=== PATIENT | male | born 1950 | race Caucasian/White ===

== ENCOUNTER 2020-04-22 05:15 | Inpatient (IN) | payer OTHER ==
[~2020-04-22] VITALS: Ht 167.6 cm; Wt 73.9 kg
[~2020-04-22 05:15] MED LIST: ASPI81CH43 PO
[2020-04-22] MEDS ORDERED: ADENOSINE 6 MG/2 ML INJ IV ONE ×2 (05:30)
[2020-04-22] MEDS ORDERED: dilTIAZem 25 MG/5 ML VIAL IV ONE ×3 (05:44→06:00)
[2020-04-22] MEDS ORDERED: LORazepam 2MG/ML-1ML VIAL ONE (05:50)
[2020-04-22] MEDS ORDERED: METOPROLOL TARTRATE 50 MG TAB PO ONE (06:00)
[2020-04-22] MEDS ORDERED: LORazepam 2MG/ML-1ML VIAL IV ONE (06:00)
[2020-04-22 06:04] LABS: Basophils # (auto) 0.1 10 ^3/uL (0-0.2); Basophils % (auto) 0.4 % (0.0-2.0); Eosinophils # (auto) 0 10 ^3/uL (0-0.8); Eosinophils % (auto) 0.1 % (0.0-7.0); Hematocrit 40.3 % (41.0-53.0); Hemoglobin 13.5 g/dL (13.5-17.5); Lymphocytes # (auto) 3.6 10 ^3/uL (0.4-5.4); Lymphocytes % (auto) 24.4 % (10.0-50.0); Mean Corpuscular Hemoglobin 32.7 pg (28.0-32.0); Mean Corpuscular Hgb Conc. 33.6 g/dL (32.0-36.0); Mean Corpuscular Volume 97.3 fL (80.0-100.0); Monocytes # (auto) 1.2 10 ^3/uL (0-1.3); Monocytes % (auto) 8.3 % (0.0-12.0); Neutrophils # (auto) 9.9 10 ^3/uL (1.6-8.6); Neutrophils % (auto) 66.8 % (37.0-80.0); Platelet Count (auto) 409 10^3/uL (140-450); Red Blood Cells 4.15 10^6/uL (4.5-5.90); White Blood Cell 14.7 10^3/uL (4.4-10.8)
[2020-04-22] MEDS ORDERED: METOPROLOL TARTRATE 1MG/1ML-5ML VIAL IV ONE (06:15)
[2020-04-22 06:22] LABS: Albumin 4.1 g/dL (3.4-5.0); Calcium 10.6 mg/dL (8.5-10.1); Magnesium 2.4 mg/dL (1.6-2.6); Potassium 3.8 mmol/L (3.5-5.1)
[2020-04-22 06:26] LABS: INR 0.94 (0.9-1.15); Partial Thromboplastin Time 23.8 sec (23.64-32.05)
[2020-04-22 06:28] LABS: BUN/Creatinine Ratio 11.8; Bilirubin, Total 0.5 mg/dL (0.2-1.0); Total Protein 7.8 g/dL (6.4-8.2)
[2020-04-22] MEDS ORDERED: DOXYCYCLINE 100MG/250ML 250 ML IV ONE (08:00)
[2020-04-22] MEDS ORDERED: cefTRIAXone 1GM/50ML D5W 50 ML IV ONE (08:00)
[2020-04-22 09:36] LABS: Lactic Acid w/Reflex 2.4 mmol/L (0.4-2.0)
[2020-04-22] MEDS ORDERED: ATOR10TA52 PO (10:03)
[2020-04-22] MEDS ORDERED: DILT60TA27 PO (10:03)
[2020-04-22] MEDS ORDERED: MYCO500T PO ×2 (10:03→12:47)
[2020-04-22] MEDS ORDERED: PRED20TA2 PO (10:03)
[2020-04-22] MEDS ORDERED: LOSA-39 PO (10:03)
[2020-04-22] MEDS ORDERED: ALBU1AER4 IN ×2 (10:11→12:47)
[2020-04-22] MEDS ORDERED: HYDROcodone-ACET 5/325MG TAB PO PRN (10:15)
[2020-04-22] MEDS ORDERED: NITROGLYCERIN 0.4 MG SL TAB SL PRN (10:15)
[2020-04-22] MEDS ORDERED: MORPHINE SULF INJ 2 MG/ML SYRINGE 1ML IV PRN (10:15)
[2020-04-22] MEDS: LOSARTAN POTASSIUM 50 MG TAB PO SCH (10:30)
[2020-04-22] MEDS ORDERED: PRED-158 PO (12:47)
[2020-04-22] MEDS ORDERED: TRIA0.1O TOP (12:47)
[2020-04-22] MEDS ORDERED: DILT120T3 PO (12:47)
[2020-04-22] MEDS: Albuterol Sulfate (Proair Respiclick) 108 MCG IN SCH ×2 (14:00→22:00)
[2020-04-22] MEDS ORDERED: ATORVASTATIN 20 MG TAB PO SCH (22:00)
[2020-04-22] MEDS: MYCOPHENOLATE 500 MG TAB PO SCH (22:06)
[2020-04-23] MEDS: Albuterol Sulfate (Proair Respiclick) 108 MCG IN SCH (06:00)
[2020-04-23] MEDS ORDERED: cefTRIAXone 1GM/50ML D5W 50 ML IV SCH (09:00)
[2020-04-23] MEDS ORDERED: cefTRIAXone SOD 1,000 MG VL ONE (09:07)
[2020-04-23 09:22] LABS: Basophils # (auto) 0.1 10 ^3/uL (0-0.2); Basophils % (auto) 0.7 % (0.0-2.0); Eosinophils # (auto) 0.1 10 ^3/uL (0-0.8); Eosinophils % (auto) 0.5 % (0.0-7.0); Hemoglobin 12.7 g/dL (13.5-17.5); Lymphocytes # (auto) 2.1 10 ^3/uL (0.4-5.4); Lymphocytes % (auto) 16.6 % (10.0-50.0); Mean Corpuscular Hemoglobin 32.5 pg (28.0-32.0); Mean Corpuscular Hgb Conc. 33.4 g/dL (32.0-36.0); Mean Corpuscular Volume 97.1 fL (80.0-100.0); Monocytes # (auto) 0.9 10 ^3/uL (0-1.3); Monocytes % (auto) 7.3 % (0.0-12.0); Neutrophils # (auto) 9.5 10 ^3/uL (1.6-8.6); Neutrophils % (auto) 74.9 % (37.0-80.0); Nucleated Red Blood Cells % 0.4 %; Platelet Count (auto) 380 10^3/uL (140-450); Red Blood Cells 3.91 10^6/uL (4.5-5.90); Red Cell Distribution Width 13.8 % (11.8-14.3); White Blood Cell 12.7 10^3/uL (4.4-10.8)
[2020-04-23] MEDS: MYCOPHENOLATE 500 MG TAB PO SCH (09:31)
[2020-04-23] MEDS: LOSARTAN POTASSIUM 50 MG TAB PO SCH (09:31)
[2020-04-23 09:42] LABS: Albumin 3.6 g/dL (3.4-5.0); BUN/Creatinine Ratio 11.6; Calcium 9.1 mg/dL (8.5-10.1); Potassium 3.9 mmol/L (3.5-5.1)
[2020-04-23 09:49] LABS: Bilirubin, Total 0.6 mg/dL (0.2-1.0)
[2020-04-23] MEDS ORDERED: dilTIAZem HCL 60 MG TAB PO SCH (10:00)
[2020-04-23] MEDS ORDERED: AZITHROMYCIN 500MG/ 250ML 250 ML IV SCH (10:00)
[2020-04-23] MEDS ORDERED: ENOXAPARIN SOD 40 MG/0.4 ML SYRINGE SC SCH (10:00)
[2020-04-23] MEDS ORDERED: predniSONE 20 MG TAB PO SCH (10:00)
[2020-04-23 10:06] LABS: Urine Bacteria NONE SEEN /hpf (None Seen); Urine Blood Negative /uL (Negative); Urine Specific Gravity 1.006 (1.001-1.035); Urine WBC <1 /hpf (0 - 3)
[2020-04-23 12:45] VITALS: BP 135/77
== END 2020-04-23 14:33 | disposition home or self-care (01) | DRG 304 ==
LOC: ER 05:15 → EDBD 05:15 → TELE 05:16
PROVIDERS: ADMIT Internal Medicine; ATTEND Internal Medicine
DX: I16.0 Hypertensive urgency (principal); J18.9 Pneumonia, unspecified organism; L12.9 Pemphigoid, unspecified; R07.89 Other chest pain; I10 Essential (primary) hypertension; F41.9 Anxiety disorder, unspecified; E78.5 Hyperlipidemia, unspecified; J45.909 Unspecified asthma, uncomplicated; R79.89 Other specified abnormal findings of blood chemistry; Z88.1 Allergy status to other antibiotic agents; Z79.82 Long term (current) use of aspirin; Z20.828 Contact with and (suspected) exposure to other viral communicable diseases; Z79.51 Long term (current) use of inhaled steroids; R00.0 Tachycardia, unspecified; I48.91 Unspecified atrial fibrillation
CPT/HCPCS: 36415; 71045; 80053; 81001; 82728; 83605; 83615; 83735; 83880; 84443; 84484; 85025; 85379; 85610; 85730; 86141; 87040; 93005; 96365; 96367; 96375; 99291; G0378; J0696; J3490; J7517

== ENCOUNTER 2020-07-01 22:51 | Observation (INO) | payer OTHER ==
[~2020-07-01] VITALS: Ht 167.6 cm; Wt 71.4 kg
[~2020-07-01 22:51] MED LIST changes: +ALBU0.084 NEB; +ALBU1AER4 IN; +AMIO200T4 PO; +APIX5TAB OR; +ATOR10TA52 PO; +BECL40AE11 IN; +DILT120T3 PO; +HYDR-2691 PO; +LOSA-39 PO; +MYCO500T PO; +PRED-158 PO; +TRIA0.1O TOP; +[UNRECOGNIZED DRUG - CODE] IJ
[2020-07-01] MEDS ORDERED: cloNIDine HCL 0.1 MG TAB PO ONE (23:15)
[2020-07-02] MEDS ORDERED: ONDANSETRON HCL 4 MG/2 ML VIAL IV ONE (00:15)
[2020-07-02] MEDS ORDERED: SODIUM CHLORIDE 0.9% 1,000 ML IV ONE (00:15)
[2020-07-02 00:21] LABS: Hematocrit 36.3 % (41.0-53.0); Hemoglobin 12.4 g/dL (13.5-17.5); Mean Corpuscular Hemoglobin 32.4 pg (28.0-32.0); Mean Corpuscular Hgb Conc. 34.1 g/dL (32.0-36.0); Platelet Count (auto) 357 10^3/uL (140-450); Red Blood Cells 3.82 10^6/uL (4.5-5.90); Red Cell Distribution Width 13.8 % (11.8-14.3); White Blood Cell 5.5 10^3/uL (4.4-10.8)
[2020-07-02 00:24] LABS: Band Neutrophils % (manual) 0; Basophils % (manual) 0 (0.0-2.0); Blast Cells 0; Eosinophils % (manual) 0 (0-7); Metamyelocytes % 0; Myelocytes % 0; Promyelocytes % 0; Reactive Lymphocytes 0
[2020-07-02 00:40] LABS: Albumin 3.2 g/dL (3.4-5.0); Calcium 9.7 mg/dL (8.5-10.1); Potassium 3.7 mmol/L (3.5-5.1)
[2020-07-02 00:42] LABS: BUN/Creatinine Ratio 11.4
[2020-07-02 00:47] LABS: Bilirubin, Total 0.2 mg/dL (0.2-1.0); Total Protein 9.2 g/dL (6.4-8.2)
[2020-07-02 00:58] LABS: Lymphocytes % (manual) 20 (10.0-50.0); Monocytes % (manual) 10 (0-12)
[2020-07-02] MEDS ORDERED: MORPHINE SULFATE 4 MG/ML SYR/VIAL IV ONE (01:15)
[2020-07-02] MEDS ORDERED: SODIUM CHL 3% 500 ML IV ONE (02:15)
[2020-07-02 02:20] LABS: Urine Bacteria NONE SEEN /hpf (None Seen); Urine Blood Negative /uL (Negative); Urine Specific Gravity 1.009 (1.001-1.035); Urine WBC <1 /hpf (0 - 3)
[2020-07-02 06:48] LABS: INR 0.98 (0.9-1.15); Partial Thromboplastin Time 26.3 sec (23.0-31.2)
[2020-07-02 06:50] LABS: Calcium 9.1 mg/dL (8.5-10.1)
[2020-07-02 06:56] LABS: BUN/Creatinine Ratio 11.2
[2020-07-02] MEDS ORDERED: ENOXAPARIN SOD 80 MG/0.8ML SYRINGE SC ONE (07:15)
[2020-07-02] MEDS ORDERED: ASPirin-EC 325mg tab PO ONE (08:30)
[2020-07-02 09:06] LABS: Band Neutrophils % (manual) 0; Basophils % (manual) 0 (0.0-2.0); Hematocrit 33.1 % (41.0-53.0); Hemoglobin 11.2 g/dL (13.5-17.5); Mean Corpuscular Hemoglobin 32.6 pg (28.0-32.0); Mean Corpuscular Hgb Conc. 33.9 g/dL (32.0-36.0); Mean Corpuscular Volume 96.3 fL (80.0-100.0); Metamyelocytes % 0; Platelet Count (auto) 318 10^3/uL (140-450); Red Blood Cells 3.43 10^6/uL (4.5-5.90); Red Cell Distribution Width 13.8 % (11.8-14.3); White Blood Cell 4.7 10^3/uL (4.4-10.8)
[2020-07-02 09:07] LABS: Blast Cells 0; Promyelocytes % 0; Reactive Lymphocytes 0
[2020-07-02 09:26] LABS: Albumin 3.1 g/dL (3.4-5.0); BUN/Creatinine Ratio 10.1; Calcium 9.3 mg/dL (8.5-10.1); Potassium 4.9 mmol/L (3.5-5.1)
[2020-07-02 09:29] LABS: Bilirubin, Total 0.3 mg/dL (0.2-1.0); Total Protein 8.3 g/dL (6.4-8.2)
[2020-07-02 09:44] LABS: Eosinophils % (manual) 3 (0-7); Lymphocytes % (manual) 28 (10.0-50.0); Monocytes % (manual) 19 (0-12); Myelocytes % 1
[2020-07-02] MEDS ORDERED: AMIODARONE HCL 200 MG TAB PO SCH (10:00)
[2020-07-02] MEDS ORDERED: MYCOPHENOLATE 500 MG TAB PO SCH (10:00)
[2020-07-02] MEDS ORDERED: predniSONE 5 MG TAB PO SCH (10:00)
[2020-07-02] MEDS ORDERED: dilTIAZem 120MG ER CAP PO SCH (10:00)
[2020-07-02] MEDS ORDERED: LOSARTAN POTASSIUM 50 MG TAB PO SCH (10:00)
[2020-07-02] MEDS: SODIUM CHLORIDE 0.9% 1,000 ML IV SCH ×2 (12:38→14:08)
[2020-07-02] MEDS ORDERED: hydrALAZINE HCL 25 MG TAB PO SCH (14:00)
--- NOTE | 2020-07-02 14:00 | NUR ---
Telemetry admit from ER ISIAH,MARGARITA GIBBS admitted to Telemetry unit after SBAR received. Patient oriented to [place], primary RN, unit, room, bed, and unit policies regarding patient care and visiting hours. Patient now on continuous telemetry monitoring, tele box # 46 and telemetry reading on arrival to unit is . Patient placed on bedside oxygen, weighed by bed scale and encouraged to call if they need something. All questions and concerns addressed, patient verbalized understanding.
--- NOTE | 2020-07-02 14:15 | NUR ---
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
--- NOTE | 2020-07-02 14:15 | NUR ---
Spoke to Dr. Markham regrading patient is in pain, received new order, noted and carried it out.
[2020-07-02 14:18] VITALS: BP 165/78
--- NOTE | 2020-07-02 14:32 | NUR ---
Called [facility] med stated [facility] has only adenosine, no Lexiscan. Will notify .
[2020-07-02] MEDS ORDERED: HYDROcodone-ACET 5/325MG TAB PO PRN (14:45)
[2020-07-02 15:09] VITALS: BP 159/72
[2020-07-02 16:05] VITALS: BP 153/68
--- NOTE | 2020-07-02 17:45 | NUR ---
Discharge instructions given as ordered. Encourage to follow up with PMD(Follow up with Eliza Sheriff in 07/12/20 at 10.30 [phone] Address : [address], [place], [address])as instructed. All questions and concerns addressed. Patient verbalized understanding. Medication reconciliation form completed and copy given to patient. IV removed with catheter intact, pressure dressing applied. Telemetry unit returned to ICU. Patient taken to vehicle via wheelchair with all personal belongings, accompanied by staff and family member. No distress noted at time of departure.
[2020-07-02] MEDS ORDERED: ATORVASTATIN 20 MG TAB PO SCH (22:00)
[2020-07-03] MEDS ORDERED: ASPirin 81 mg TAB PO SCH (10:00)
[2020-07-08] MEDS ORDERED: RIV15T PO (01:13)
[2020-07-08] MEDS ORDERED: HYDR-4833 PO (01:14)
== END 2020-07-02 17:45 | disposition home or self-care (01) ==
LOC: EDUNIT# 22:51 → ER 22:51 → EDBD 22:51 → INTOOBSV 22:52 → TELE 22:52 → TELE-CENTR 07-02 14:03
PROVIDERS: ADMIT Internal Medicine; ATTEND Internal Medicine
DX: I16.0 Hypertensive urgency (principal); Z20.828 Contact with and (suspected) exposure to other viral communicable diseases; E87.1 Hypo-osmolality and hyponatremia; I10 Essential (primary) hypertension; F17.210 Nicotine dependence, cigarettes, uncomplicated; G89.29 Other chronic pain; M54.9 Dorsalgia, unspecified; I48.91 Unspecified atrial fibrillation; Z88.1 Allergy status to other antibiotic agents; Z79.899 Other long term (current) drug therapy
CPT/HCPCS: 36415; 71045; 80048; 80053; 81001; 84484; 85007; 85027; 85610; 85730; 87081; 87426; 93005; 96361; 96372; 96374; 96375; 99285; G0378; J1642; J1650; J2270; J2405; J7030; J7040; J7512; J7517

== ENCOUNTER 2020-07-04 08:52 | Emergency (ER) | payer OTHER ==
[~2020-07-04] VITALS: Ht 172.7 cm; Wt 77.1 kg
[2020-07-04 10:28] LABS: Basophils # (auto) 0 10 ^3/uL (0-0.2); Eosinophils # (auto) 0.1 10 ^3/uL (0-0.8); Eosinophils % (auto) 1.4 % (0.0-7.0); Hematocrit 35.8 % (41.0-53.0); Hemoglobin 12.7 g/dL (13.5-17.5); Lymphocytes # (auto) 0.8 10 ^3/uL (0.4-5.4); Lymphocytes % (auto) 15.9 % (10.0-50.0); Mean Corpuscular Hgb Conc. 35.6 g/dL (32.0-36.0); Mean Corpuscular Volume 95.7 fL (80.0-100.0); Monocytes # (auto) 0.7 10 ^3/uL (0-1.3); Monocytes % (auto) 15.1 % (0.0-12.0); Neutrophils # (auto) 3.2 10 ^3/uL (1.6-8.6); Neutrophils % (auto) 66.6 % (37.0-80.0); Nucleated Red Blood Cells % 0.2 %; Platelet Count (auto) 366 10^3/uL (140-450); Red Blood Cells 3.74 10^6/uL (4.5-5.90); Red Cell Distribution Width 13.9 % (11.8-14.3); White Blood Cell 4.8 10^3/uL (4.4-10.8)
[2020-07-04 10:48] LABS: Albumin 3.4 g/dL (3.4-5.0); Calcium 9.2 mg/dL (8.5-10.1); Magnesium 1.9 mg/dL (1.6-2.6); Potassium 3.7 mmol/L (3.5-5.1)
[2020-07-04 10:55] LABS: BUN/Creatinine Ratio 9.7; Bilirubin, Total 0.2 mg/dL (0.2-1.0); Total Protein 8.6 g/dL (6.4-8.2)
[2020-07-04 10:55] LABS: Urine Bacteria NONE SEEN /hpf (None Seen); Urine Blood Negative /uL (Negative); Urine Mucus FEW (None Seen); Urine Specific Gravity 1.013 (1.001-1.035); Urine WBC <1 /hpf (0 - 3)
[2020-07-04 14:54] VITALS: BP 149/72
[2020-07-04] MEDS ORDERED: HYDR-2691 PO (14:58)
--- NOTE | 2020-07-05 10:30 | NUR ---
1008 07/05/20 - Faxed to [facility] at [phone], face sheet, order for [facility] shoe caser to arrange for HH safety and RN visit, [facility] shoe caser to arrange for follow up with Dr Cisneros (structural shop helper) in 2-3 days, consult and ER notes. Contacted [facility] shoe caser at [phone], unable to connect with shoe caser, left message stating the above on confidential voicemail. Pending review and [facility] manager arranging for HH and f/u appointment. Addendum: 07/05/20 at 1448 by Jennifer Fishman RN, CM 1872 Contacted [facility] shoe caser at [phone], spoke with [facility] who stated pt has been accepted by [facility] for home health services and f/u appts have been scheduled.
[2020-07-08] MEDS ORDERED: RIV15T PO (01:13)
[2020-07-08] MEDS ORDERED: HYDR-4833 PO (01:14)
== END 2020-07-04 14:54 | disposition home or self-care (01) ==
LOC: ER 08:52
DX: J44.1 Chronic obstructive pulmonary disease with (acute) exacerbation (principal); E87.1 Hypo-osmolality and hyponatremia; I48.0 Paroxysmal atrial fibrillation; F17.210 Nicotine dependence, cigarettes, uncomplicated; F12.10 Cannabis abuse, uncomplicated
CPT/HCPCS: 36415; 71045; 80053; 81001; 83735; 83880; 84484; 85025; 85379; 93005

== ENCOUNTER → 2024-02-12 | Outpatient (CLI) | payer OTHER, MEDICAID ==
[~2024-02-12] MED LIST changes: +ALBUTEROL SULF 2.5 MG/0.5ML(0.5%) NEB SOLN ONE; +AMIO200T13 PO; -AMIO200T4 PO; -HYDR-2691 PO; +HYDR-4833 PO; +HYDR25TA87 PO; +KETOROLAC TROMETH 30 MG/ML 1ML VIAL ONE; -LOSA-39 PO; +LOSA-535 PO; +MORPHINE SULF PF 5 MG/10 ML VIAL ONE; -PRED-158 PO; +PRED10TA PO; +RIV15T PO
== END | disposition home or self-care (01) ==
LOC: RT 08:36
PROVIDERS: ATTEND Internal Medicine Pulmonary Disease
DX: J44.9 Chronic obstructive pulmonary disease, unspecified (principal)
CPT/HCPCS: 94060; 94727; 94729; J1885